=== PATIENT | female | born 1995 | race Caucasian/White ===

== ENCOUNTER 2017-09-07 07:38 | Inpatient (IN) ==
[2017-09-07] MEDS ORDERED: Metoclopramide 10 MG/2 ML VIAL IVP PRN (07:51)
[2017-09-07] MEDS ORDERED: *HR* Nalbuphine 20 MG/ML AMPUL IVP PRN (07:51)
[2017-09-07] MEDS ORDERED: Famotidine 20 MG/2 ML VIAL IVP PRN (07:51)
[2017-09-07] MEDS ORDERED: Ringers Solution, Lactated 1,000 ML IVC SCH (08:00)
[2017-09-07] MEDS ORDERED: Oxytocin 20 units/ LR 1000 mL 20 UNIT/1,000 ML BAG IVC SCH (08:00)
[2017-09-07 08:46] LABS: Amphetamine Screen,Urine Negative ng/mL (Cutoff=1000); Barbiturate Screen,Urine Negative ng/mL (Cutoff=200); Benzodiazepines Screen,Urine Negative ng/mL (Cutoff=200); Cannabinoid Screen,Urine Negative ng/mL (Cutoff = 50); Cocaine Screen,Urine Negative ng/mL (Cutoff= 300); Opiate Screen,Urine Negative ng/mL (Cutoff=300); Phencyclidine Screen,Urine Negative ng/mL (Cutoff=25)
[2017-09-07 08:47] LABS: Basophils # 0.1 K/mcL (0.0-0.2); Basophils % 0.4 %; Eosinophils # 0.1 K/mcL (0.0-0.6); Eosinophils % 0.8 %; Hematocrit 36.5 % (35.3-44.9); Hemoglobin 12.3 g/dL (11.5-15.4); Immature Granulocytes % 0.9 % (0-4); Lymphocytes # 2.3 K/mcL (0.6-4.6); Lymphocytes % 14.4 %; Mean Corpuscular HGB Conc 33.7 g/dL (31.6-35.5); Mean Corpuscular Hemoglobin 29.4 pg (28.0-33.3); Mean Corpuscular Volume 87.1 fL (83.0-100.0); Mean Platelet Volume 10.9 fL (9.4-12.4); Monocytes # 1.2 K/mcL (0.0-1.3); Monocytes % 7.3 %; Neutrophils # 12.1 K/mcL (1.6-8.9); Platelet Count 233 K/mcL (140-400); Red Blood Count 4.19 M/mcL (3.82-4.97); Red Cell Distribution Width 13.2 % (11.5-14.5); Segmented Neutrophils % 76.2 %
[2017-09-07 09:06] LABS: Large Platelets Present (Not Present); Platelet Estimate Normal (Normal)
--- NOTE | 2017-09-07 10:43 | OB/GYN History & Physical ---
Date of Encounter: 09/07/17 Time of Encounter: 10:42 Assessment and Plan (1) 39 weeks gestation of Current visit: Yes Status: Acute Admit to L&D for IOL Monitoring - baseline 130 with variability - Category I Ronald Q 2-3 minutes Cervix check 3/80/-2 at office 09/05/17 Pitocin per protocol Expect History of Present Illness Chief complaint: Induction of Labor HPI: Ms. Theodore is a 21 year old female at 39w4d presenting to L&D for IOL. She reports good movement. Denies LOF, contractions, vaginal bleeding, or vaginal discharge. She denies any complications with this . She denies other medical history. She denies fevers, chills, headaches, blurry vision, chest pain, dyspnea, abdominal pain, dysuria, or edema. Blood type A+ GBS negative Rubella Immune Varicella Non-immune All other serologies negative Past Med Surg Social Fam HX - Past Medical History Medical history: no medical history Psychiatric history: no psych history - Past Surgical History Surgical History: other - Social History Smoking Status: Current every day smoker Packs per day: 0.5 Smokeless Tobacco Status: No Alcohol use: none Drug use: none - Family History Mother Living Status: Still Living Hx Family Genitourinary Disorders: Yes (renal artery stenosis) Obstetrical History - Pregnancies : 1 Para: 0 Term: 0 : 0 Ab's: 0 Livin Medications and Allergies Vitamins 1 tab PO DAILY 09/07/17 [History] 3 Allergy/AdvReac Type Severity Reaction Status Date / Time Penicillins Allergy Hives Verified 09/07/17 09:19 Review of System OB All systems PM: reviewed and no additional remarkable complaints except as stated Exam - Constitutional Constitutional: well developed, well nourished, no acute distress, average body habitus - HEENT HEENT: Normocephaly, Mucus Membranes Moist - Lungs Respiratory exam: CTAB - Cardiovascular Cardiovascular exam: RRR, +S1, +S2 - Abdomen Abdomen: Present: bowel sounds normal - Extremities Extremities exam: normal capillary refill, normal inspection, pedal edema (mild bilaterally) - Vulva Vulva: bilateral: normal - Vagina Vagina: Present: normal moisture - Cervix Dilation: 3 (per exam at office) Effacement: 80 Station: -2 - Uterus Uterus exam: Present: normal size, normal contour - Anus/Rectum Anus/Rectum: Present: normal perianal skin - Comments Comments: FHT - baseline 130 with variability - Category I Ronald Q 2-3 minutes Results Result Diagrams: 09/07/17 08:25 Abnormal lab results WBC 15.9 K/mcL (4.3-11.1) H 09/07/17 08:25 Neutrophils # 12.1 K/mcL (1.6-8.9) H 09/07/17 08:25 Large Platelets Present (Not Present) A 09/07/17 08:25 All other labs normal. - VTE Reasons for not Prescribing Prophylaxis: Treatment not Indicated - Low risk for VTE
--- NOTE | 2017-09-07 12:57 | Anesthesia Evaluation PreOp ---
Date of Encounter: 09/07/17 Time of Encounter: 11:13 - Past History Planned Operation: vaginal del, G1 induction Cardiac History: Denies any Significant Hx Pulmonary History: Denies Any Significant HX [employer] History: Denies Any Significant HX Other Medical History: Other (upper thoracic/cervical scoliosis. no radiculopathy reported.) Anesthesia History: No Prior Anesthetic Complications (no family Hx, wisdom teeth ext.), Past Anesthesia Alcohol Use: none Drug use: none Medications and Allergies Vitamins 1 tab PO DAILY 09/07/17 [History] 3 Allergy/AdvReac Type Severity Reaction Status Date / Time Penicillins Allergy Hives Verified 09/07/17 09:19 Anesthesia Results - Labs 09/07/17 08:25 Anesthesia Exam - HEENT Pupil (Motor): Pupils equal Mallampati: II Teeth: Missing, Poor dentition Oral Opening: Greater than 3 - [employer] LOC: Oriented [employer] Motor: Normal RUE, Normal LUE, Normal RLE, Normal LLE, Normal Face [employer] Sensory: Normal: RUE, LUE, RLE, LLE, Face - Cardiac Rhythm: Regular Murmur: None - Pulmonary Breath Sounds: bilateral Clear Respiratory Effort: Symmetrical Anesthesia Assess/Plan ASA Score: 2 Modified Moville Scale for Level of Consciousness: Cooperative, oriented, and tranquil Anesthetic Plan: General, Regional Monitoring Plan: Standard Monitors Recovery Plan: PACU
[2017-09-07] MEDS ORDERED: Epidural Premix (fent/bupiv) 110 ML EP ONE ×2 (13:14→21:55)
--- NOTE | 2017-09-07 14:11 | OB Labor Progress Note ---
Date of Encounter: 09/07/17 Time of Encounter: 14:08 Labor Progress Note - Subjective Subjective: Pt states she is feeling some contractions, rates pain 3/10 - Cervix Cervix: 3-4/75/ballotable - Heart Tones Heart Tones: 125/moderate/+accles/-decels - [place]: q2 - Interventions Interventions: 60cc jimenez balloon placed - Plan Plan: Continue to increase pitocin per policy AROM when head more engaged POC discussed with Dr. Castro Anticipate
--- NOTE | 2017-09-07 15:38 | Anesthesia Procedures ---
Date of Encounter: 09/07/17 Time of Encounter: 15:23 Procedures: Anesthesia - Epidural/Spinal Patient ID/Chart reviewed: Yes Patient examined: Yes OB Eval: Gestational age: term OB Eval: : 1 OB Eval: Contractions: Non-stressed pattern Consent Obtained: Yes Supplemental Oxygen: None/Room Air Site Prep: Aseptic Technique, Sterile prep and drape, 0.5% Chlorhexidine/Alcohol Patient position: upright Local Anesthetic: Lidocaine 1% Amount of Local Anesthetic used: 2 Touhy Needle Gauge: 18 Touhy Needle Depth (cm): 7 Catheter Depth at Skin (cm): 11 Test Dose (1.5% Lido + Epi): Volume given (mls): 3 Test Dose Result: Negative Loading Dose: Other: 10ml from solution Loading Dose Administered: Thru Catheter Infusion Med: 0.125% Bupivacaine w/ 2 mcg/ml Fentanyl Infusion Rate (mls/hr): [address]: Tegaderm, Tape Interspace Used: L3-L4 Loss of Resistance (DAWSON): Yes (saline) Blood: No CSF: No Paresthesia: No Procedure: vss though out, FHR stable per RN's
--- NOTE | 2017-09-07 16:38 | OB Labor Progress Note ---
Date of Encounter: 09/07/17 Time of Encounter: 16:34 Labor Progress Note - Subjective Subjective: Patient is comfortable after her epidural. She denies any concerns. - Cervix Cervix: 6/75/-2 vertex - Heart Tones Heart Tones: category 1 - [place]: q 1.5-2 minutes - Interventions Interventions: AROM with clear fluid. IUPC placed without difficulty. - Plan Plan: Continue induction
[2017-09-07] MEDS ORDERED: Acetaminophen 325 MG TABLET PO ONE (23:13)
[2017-09-08] MEDS ORDERED: Epidural Premix (fent/bupiv) 110 ML EP ONE (05:31)
--- NOTE | 2017-09-08 13:39 | OB/GYN Procedure Note ---
Delivery - Delivery Date: 09/08/17 Provider: Addie Castro Delivery induction: AROM, oxytocin, jimenez Delivery monitor: none, external FHT, external uterine, internal FHT, internal uterine Anesthesia: epidural Estimated Blood Loss: 200 - Infant (s) A Infant Delivery Date: 09/08/17 Delivery Time: 13:14 Presentation: vertex Position: JAYRO Route of delivery: vacuum extraction Gender: Male Viability: Viable Pounds: 7 Ounces: 8 at 1 minute: 7 at 5 mins: 9 Shoulder Dystocia: encountered (20 second) Shoulder Dystocia Maneuvers: delivery of posterior arm Specimens collected: cord blood, venous cord gases, arterial cord gases Placenta: spontaneous Cord: 3 umbilical vessels - Repair Episiotomy: none Laceration Description: Perineal - 1st Degree - Complications Delivery complications: none Delivery comments: In room pushing with mother and head in the JAYRO position. Category 2 FHR tracing with good variability in between the decels. Patient verbally consented for vacuum application. Consent obtained. Straight cath with 0 urine output. With maternal effort Kiwi vacuum applied to 500 mmHg and 2 pop off's the head delivered. 20 second shoulder dystocia was then encountered and was resolved with Zhane and delivery of the posterior arm. No fundal pressure was given and due to the palpation of the posterior hand at the neck , no gentle downward traction was applied and no suprapubic pressure was ordered. Following the delivery infant was placed on mom's abdomen. Cord was allowed to cease pulsation and then was clamped and cut. Segment of cord was obtained for cord gases. Cord blood was collected. Placenta delivered spontaneous, complete, and intact with a 3 vessel cord. First degree perineal laceration was noted and repaired with 3-0 vicryl. A left labial lac was noted and reapproximated with a single interrupted of 3-0 vicryl. Mother and infant are recovering in the LDR in stable condition. Cord gases pending at the time of documentation. - Disposition Mom disposition: stable in LDR disposition: stable in LDR
[2017-09-08] MEDS ORDERED: Acetaminophen 325 MG TABLET PO PRN (15:40)
[2017-09-08] MEDS ORDERED: Oxytocin 20 units/ LR 1000 mL 20 UNIT/1,000 ML BAG IVC SCH (15:40)
[2017-09-08] MEDS: Ibuprofen 600 MG TABLET PO PRN (21:47)
[2017-09-09] MEDS: Ibuprofen 600 MG TABLET PO PRN (08:09)
[2017-09-09 08:58] VITALS: BP 107/63
[2017-09-09] MEDS ORDERED: Prenatal Vit/FA 1 EACH TABLET PO SCH (09:00)
--- NOTE | 2017-09-09 09:36 | Discharge Summary ---
Date of Encounter: 09/09/17 Time of Encounter: 09:33 - Discharge Diagnosis (1) Status post vacuum-assisted vaginal delivery Priority: Primary Status: Acute Comments: Pt meeting milestones. - Discharge Medications Prescriptions: Ibuprofen [Motrin] 600 mg PO Q6HR PRN #30 tablet PRN Reason: Cramping Docusate [Colace] 100 mg PO BID #30 capsule Home Medications: Vitamins 1 tab PO DAILY 09/07/17 [History] Docusate [Colace] 100 mg PO BID #30 capsule 09/09/17 [Rx] Ibuprofen [Motrin] 600 mg PO Q6HR PRN #30 tablet 09/09/17 [Rx] Allergies/Adverse Reactions: 3 Allergy/AdvReac Type Severity Reaction Status Date / Time Penicillins Allergy Hives Verified 09/07/17 09:19 Data Procedures and tests throughout hospitalization: Laboratory Tests 09/07/17 09/07/17 08:25 08:25 WBC 15.9 H RBC 4.19 Hgb 12.3 Hct 36.5 MCV 87.1 MCH 29.4 MCHC 33.7 RDW 13.2 Plt Count 233 MPV 10.9 Immature Gran % 0.9 Seg Neutrophils % 76.2 Lymphocytes % 14.4 Monocytes % 7.3 Eosinophils % 0.8 Basophils % 0.4 Neutrophils # 12.1 H Lymphocytes # 2.3 Monocytes # 1.2 Eosinophils # 0.1 Basophils # 0.1 Platelet Estimate Normal Large Platelets Present A Immature Plt Fraction 5.0 Urine Opiates Screen Negative Ur Barbiturates Screen Negative Ur Phencyclidine Scrn Negative Ur Amphetamines Screen Negative U Benzodiazepines Scrn Negative Urine Cocaine Screen Negative U Marijuana (THC) Screen Negative Date of admission: 09/07/17 07:38 Primary care physician: PCP NONE Consults: 09/08/17 15:40 Consult to Merchandise Support Associate [CONS] Routine Comment: Vaginal delivery, consult needed Discharging clinician: Imelda Coleman Anticipated date of discharge: 09/09/17 - Patient Status Disposition: Home, Self-Care Condition: Good Functional capacity at discharge: independent ambulation Overall status at discharge: patient is progressing back to baseline - Discharge Instructions Follow Up With: NONE,PCP [Primary Care Provider] - Addie Castro, [Partnered Physician] - - Diet and Activity Activity: increase activity as tolerated Diet: regular diet Hospital Course Reason for admission: induction of labor Delivery: Episiotomy: none Laceration: 1st degree Other procedures: none complications: none Discharge diagnosis: IUP at term delivered baby: male Hospital course: - Delivery Date: 09/08/17 Provider: Addie Castro Delivery induction: AROM, oxytocin, jimenez Delivery monitor: none, external FHT, external uterine, internal FHT, internal uterine Anesthesia: epidural Estimated Blood Loss: 200 - (s) Infant A Delivery Date: 09/08/17 Infant Delivery Time: 13:14 Presentation: vertex Position: JAYRO Route of delivery: vacuum extraction Gender: Male Viability: Viable Pounds: 7 Ounces: 8 at 1 minute: 7 at 5 mins: 9 Shoulder Dystocia: encountered (20 second) Shoulder Dystocia Maneuvers: delivery of posterior arm Specimens collected: cord blood, venous cord gases, arterial cord gases Placenta: spontaneous Cord: 3 umbilical vessels - Repair Episiotomy: none Laceration Description: Perineal - 1st Degree - Complications Delivery complications: none course: uncomplicated, home PPD#1, bottle feeding Time Attestation: Total time spent providing and/or coordinating discharge services: Time Spent: Less than 30 minutes Exam - Constitutional Vitals: Temp Pulse Resp BP Pulse Ox 98.0 F 74 16 107/63 98 09/09/17 08:00 09/09/17 08:00 09/09/17 08:00 09/09/17 08:00 09/09/17 08:00 General appearance IM: A&O X 3 - Respiratory Respiratory exam: Present: CTAB - Cardiovascular Cardiovascular exam IM: Present: RRR, +S1, +S2 - GI/Abdominal GI/Abdominal exam IM: soft, no peritoneal signs - Rectal Rectal exam: deferred - Uterine Tone: Firm Uterus Position: 2 Fingers Below Umbilicus - Extremities Exam Extremities exam IM: Present: pedal edema (1+ bilaterally, no erythema or warmth ) - Neurological Exam Neurological exam: normal gait, oriented X3 - Psychiatric Additional comments: pleasant mood
== END 2017-09-09 16:05 | disposition home or self-care (01) | DRG 560 ==
LOC: 1NENULAB 07:38 → 1NENUOBS 09-08 15:40
PROVIDERS: ADMIT Obstetrics & Gynecology; ATTEND Obstetrics & Gynecology

== ENCOUNTER 2020-04-23 07:50 | Inpatient (IN) ==
[2020-04-23] MEDS ORDERED: Famotidine 20 MG/2 ML VIAL IVP PRN (08:38)
[2020-04-23] MEDS ORDERED: Naloxone 0.4 MG/ML INJ IVP PRN ×2 (08:38→11:39)
[2020-04-23] MEDS ORDERED: *HR* FentaNYL (PF) 100 MCG/2 ML VIAL IVP PRN (08:38)
[2020-04-23] MEDS ORDERED: Lidocaine 1% 20 ML MDV INFILT PRN (08:38)
[2020-04-23] MEDS ORDERED: Ondansetron 4 MG/2 ML VIAL IVP PRN (08:38)
[2020-04-23] MEDS ORDERED: Metoclopramide 10 MG/2 ML VIAL IVP PRN (08:38)
[2020-04-23] MEDS ORDERED: miSOPROStoL 25 MCG TABLET VG PRN (08:38)
[2020-04-23] MEDS ORDERED: Azithromycin 500 MG in 0.9 % Sodium Chloride 250 ML IVPB ONE (08:38)
[2020-04-23] MEDS ORDERED: Ringers Solution, Lactated 1,000 ML IVC SCH (08:45)
[2020-04-23] MEDS ORDERED: Oxytocin 20 units/ LR 1000 mL 20 UNIT/1,000 ML BAG IVC SCH (08:45)
[2020-04-23 09:04] LABS: Basophils % 0.3 %; Eosinophils # 0.1 K/mcL (0.0-0.6); Eosinophils % 0.5 %; Hematocrit 34.6 % (35.3-44.9); Hemoglobin 11.1 g/dL (11.5-15.4); Immature Granulocytes % 0.4 % (0-4); Lymphocytes # 2.5 K/mcL (0.6-4.6); Lymphocytes % 19.2 %; Mean Corpuscular HGB Conc 32.1 g/dL (31.6-35.5); Mean Corpuscular Hemoglobin 26.7 pg (28.0-33.3); Mean Corpuscular Volume 83.4 fL (83.0-100.0); Mean Platelet Volume 10.1 fL (9.4-12.4); Monocytes # 1.1 K/mcL (0.0-1.3); Monocytes % 8.8 %; Neutrophils # 9.1 K/mcL (1.6-8.9); Platelet Count 303 K/mcL (140-400); Red Blood Count 4.15 M/mcL (3.82-4.97); Red Cell Distribution Width 13.1 % (11.5-14.5); Segmented Neutrophils % 70.8 %; White Blood Count 12.9 K/mcL (4.3-11.1)
[2020-04-23] MEDS ORDERED: miSOPROStoL 25 MCG TABLET PO PRN (09:11)
[2020-04-23 09:16] LABS: Amphetamine Screen,Urine Negative ng/mL (Cutoff=1000); Barbiturate Screen,Urine Negative ng/mL (Cutoff=200); Benzodiazepines Screen,Urine Negative ng/mL (Cutoff=200); Cannabinoid Screen,Urine Negative ng/mL (Cutoff = 50); Cocaine Screen,Urine Negative ng/mL (Cutoff= 300); Opiate Screen,Urine Negative ng/mL (Cutoff=300); Phencyclidine Screen,Urine Negative ng/mL (Cutoff=25)
[2020-04-23] MEDS ORDERED: 0.9 % Sodium Chloride 500 ML IVC PRN (11:39)
[2020-04-23] MEDS ORDERED: EPHEDrine 50 MG/ML VIAL IVP PRN (11:39)
[2020-04-23] MEDS ORDERED: Epidural Premix (fent/bupiv) 110 ML EP ONE ×2 (11:45→19:01)
[2020-04-23] MEDS ORDERED: Epidural Premix (fent/bupiv) 110 ML EP SCH (11:45)
[2020-04-23] MEDS ORDERED: Acetaminophen 325 MG TABLET PO ONE (23:03)
[2020-04-24] MEDS ORDERED: Epidural Premix (fent/bupiv) 110 ML EP ONE (02:00)
[2020-04-24] MEDS ORDERED: Lanolin 7 G OINT...G. TP PRN (03:49)
[2020-04-24] MEDS ORDERED: Benzocaine/Menthol 56 GM AEROSOL SPRAY TP PRN (03:49)
[2020-04-24] MEDS ORDERED: Oxytocin 20 units/ LR 1000 mL 20 UNIT/1,000 ML BAG IVC SCH (03:49)
[2020-04-24] MEDS: Ibuprofen 600 MG TABLET PO SCH ×2 (07:49→17:38)
[2020-04-24] MEDS: Prenatal Vit/FA 1 EACH TABLET PO SCH (07:49)
[2020-04-24] MEDS: Acetaminophen 325 MG TABLET PO SCH ×2 (17:37→18:43)
[2020-04-25] MEDS: Acetaminophen 325 MG TABLET PO SCH ×2 (03:45→09:22)
[2020-04-25] MEDS: Ibuprofen 600 MG TABLET PO SCH ×3 (03:46→07:37)
[2020-04-25] MEDS: Prenatal Vit/FA 1 EACH TABLET PO SCH (07:37)
[2020-04-25 09:40] VITALS: BP 113/72
== END 2020-04-25 10:35 | disposition home or self-care (01) | DRG 560 ==
LOC: 1NENULAB 07:50 → 1NENUOBS 04-24 05:30
PROVIDERS: ADMIT Obstetrics & Gynecology; ATTEND Obstetrics & Gynecology